=== PATIENT | male | born 1950 | race Caucasian/White ===

== ENCOUNTER → 2020-02-19 08:52 | Outpatient (CLI) | payer MEDICARE, SELFPAY ==
[2020-02-19 10:10] LABS: Add Manual Diff / Slide Review NO; Basophils Absolute Auto 0 /uL (0-100); Basophils Percent Auto 0.5 % (0-2); Eosinophils Absolute Auto 200 /uL (0-450); Eosinophils Percent Auto 4.3 % (2-4); Hematocrit 43.7 % (41-53); Hemoglobin 14.7 g/dL (13.5-17.5); Lymphocytes Absolute Auto 1200 /uL (1100-4500); Lymphocytes Percent Auto 26.6 % (25-40); Mean Corpuscular HGB Conc 33.7 % (30-36); Mean Corpuscular Hemoglobin 31.3 PG (26-34); Mean Corpuscular Volume 92.9 fL (80-100); Monocytes Absolute Auto 400 /uL (0-900); Monocytes Percent Auto 8.1 % (3-14); Neutrophils Absolute Auto 2800 /uL (1500-7000); Neutrophils Percent Auto 60.5 % (50-75); Platelet Count 185 X10^3/uL (150-400); White Blood Cell Count 4.6 X10^3/uL (4.5-11.0)
[2020-02-19 10:18] LABS: Hemoglobin A1C% w Est Avg Glu 5.5 % (4.0-6.0)
[2020-02-19 10:41] LABS: BUN Creatinine Ratio 21.7 (6-22); Blood Urea Nitrogen 18 mg/dL (9-20); Carbon Dioxide 34 mmol/L (22-32); Chloride 106 mmol/L (98-107); Estimated Glomerular Filt Rate > 60.0 mL/min (>60); Glucose 104 mg/dL (80-110); HEMOLYSIS < 15 (0-50); Potassium 3.9 mmol/L (3.4-5.1); Sodium 141 mmol/L (137-145)
== END ==
PROVIDERS: PCP Nurse Practitioner Family; Referring Provider Nurse Practitioner Family; Visit Provider Orthopaedic Surgery
DX: Z01.818 Encounter for other preprocedural examination (principal); R73.9 Hyperglycemia, unspecified; Z01.812 Encounter for preprocedural laboratory examination
CPT/HCPCS: 36415; 80048; 83036; 85025; 93005

== ENCOUNTER → 2020-03-08 10:04 | Outpatient (CLI) | payer MEDICARE, SELFPAY ==
[2020-03-08 11:36] LABS: COVID19 -Nasal RAPID Negative (Negative)
== END ==
PROVIDERS: PCP Nurse Practitioner Family; Referring Provider Physician Assistant; Visit Provider Physician Assistant
DX: Z01.812 Encounter for preprocedural laboratory examination (principal); Z20.828 Contact with and (suspected) exposure to other viral communicable diseases
CPT/HCPCS: 87635; C9803

== ENCOUNTER 2020-03-10 06:21 | Day surgery (SDC) | payer MEDICARE, SELFPAY ==
[2020-03-03 12:59] VITALS: BMI 40.7
[2020-03-10] VITALS (18 sets, daily range): BP systolic 86–132; BP diastolic 42–80; PULSE 53–94; RESP 10–18; TEMP 36.3–36.9; O2SAT 91–98; BMI 39.6
[2020-03-10] MEDS: ACETAMINOPHEN 325 MG TABLET 975 MG PO (06:58)
[2020-03-10] MEDS: PREGABALIN 75 MG CAPSULE PO (06:59)
[2020-03-10] MEDS: LACTATED RINGERS 1,000 ML 42 ML IV ×2 (07:22→09:22)
--- NOTE | 2020-03-10 07:36 | PM.PREOP ---
Pre-operative Note COVID-19 COVID-19 status: Negative Result date/Date tested (Pos, Neg/Pending): 03/08/20 Interval Note History & Physical reviewed/Exam performed by Physician: Yes Changes to H&P: No
[2020-03-10] MEDS: CEFAZOLIN 2 GM/100 ML FROZ.PIGGY IV (07:52)
[2020-03-10] MEDS: TRANEXAMIC ACID 1,000 MG VIAL 2000 MG INJ ×2 (08:21→09:30)
--- NOTE | 2020-03-10 08:33 | SUR.OPER ---
Supine on padded OR bed. Pillow under head, arms secured on padded armboards <90 degree abduction. Safety belt across torso. Non-operative leg secured with tape over blanket over lower leg. Operative leg secured in DeMayo/Cabrera positioner.
[2020-03-10] MEDS: BUPIVACAINE LIPOSOME 266 MG/20 ML VIAL INJ (08:41)
[2020-03-10] MEDS: MORPHINE 4 MG/ML INJ INJ (08:42)
[2020-03-10] MEDS: BUPIVACAINE 0.25% W/ EPI 30 ML VIAL 60 ML INJ (08:43)
[2020-03-10] MEDS: TRANEXAMIC ACID 1,000 MG VIAL 1000 MG INJ (09:30)
--- NOTE | 2020-03-10 09:57 | P.OP_ITS ---
Operative Date/Time/Diagnoses Date of procedure: 03/10/20 Time of procedure: 09:57 Pre-op diagnosis: Right knee osteoarthritis Post-op diagnosis: same Procedure & Clinicians Procedure: Right total knee replacement Same procedure as scheduled: Yes Indications: The patient has had progressively worsening right knee pain with radiographic changes consistent with arthritis. Non-operative management has failed and the patient has requested total knee replacement. The risks, benefits and alternatives to surgery were discussed with the patient prior to proceeding. Risks discussed included, but were not limited to, failure to relieve pain, stiffness, infection, nerve damage, deep venous thrombosis, pulmonary embolism, stroke, coma, heart attack, permanent paralysis and , as well as the potential need for eventual revision of the prosthetic. Surgeon: Adalberto Mathew Housing Relocation: Rachel Cordova Click Yes if Unassisted: No Anesthesia Type: General, Spinal and Local Operative Notes Findings: Severe lateral and moderate medial and patellofemoral osteoarthritis Closure Type: primary Specimen(s): none sent Prosthetic devices, grafts, tissues, transplants, or devices: Implants used in this procedure were manufactured by the [employer] and included the BCS II Journey total knee replacement with a size 7 right Oxinium femoral component, a size 7 right non porous tibial base plate, a 9 mm cross- linked polyethylene tibial insert and a 38 mm oval Haylie II patella. Applied: implant(s) Estimated Blood Loss (mL): 25 Blood products transfused: none Tourniquet time (min): 58 Procedure in detail: The patient was seen in the pre-operative area, where the patient identified the right knee as the operative site and this was marked with my initials. The patient received pre-operative antibiotics, and was taken to the operating room and placed on the operative table in the supine position. After satisfactory anesthesia, a artillery or naval gunfire observer out was performed. The right leg was encircled with a tourniquet about the proximal thigh, and the leg was prepared from the toes to the tourniquet with ChloraPrep in the usual fashion and draped through sterile drapes. The leg was elevated and exsanguinated with Eschmark bandage and the tourniquet inflated to 250 mmHg pressure. The knee was approached through an approximately 18 cm incision centered over the patella and carried into the knee through a medial parapatellar arthrotomy. The anterior osteophytes and soft tissues were removed. The rotational landmarks of Lucile's line and the transepicondylar axis were marked on the femur with electrocautery, and intramedullary guide holes for the femur and tibia were created. The distal femoral cut was made in 6 degrees of valgus using the intramedullary guide at the primary cut setting. The proximal tibial cut was then made using the intramedullary guide, taking 7 mm of bone off the less involved medial side. The extension gap was checked and the rotation of the femoral component confirmed with the gap balancing system. The anterior, posterior and chamfer cuts were then made. The posterior osteophytes and soft tissues were then removed. The posterior capsule was injected with part of a mixture of 60 ml 0.25% Marcaine mixed with 20 ml Exparel and 4 mg of morphine for post-operative pain control. The remainder of this mixture was injected into the capsule and subcutaneous tissues during cement curing. The tibia was prepared with the rotation set by an extra medullary guide. Trial tibial and femoral components were then placed and the intercondylar notch cut through the femoral trial. Range of motion was 0-135 degrees, with good stability throughout the range. The patella was then cut to accommodate the patellar prosthetic. There was no need for a lateral release. The trials were then removed, and the femoral hole plugged with a bone plug. The bone was prepared with pulsatile lavage, and dried with a sponge. Cement was applied and the final prosthetics placed. Excess cement was removed during and after cement curing. After confirming there was no extruded cement posteriorly, the final tibial insert was placed. The knee was copiously irrigated and the tourniquet deflated. Hemostasis was obtained. The capsule was closed with interrupted # 2 polyester suture. The subcutaneous layer was closed with 3-0 Vicryl, and the skin with a running 3-0 V-Lock suture and Dermabond. An Aquacel Ag dressing was applied and the patient was taken to recovery having tolerated the procedure well. Complications: none Post-operative Condition: stable Disposition: PACU Plan for aftercare: The patient will be maintained on a standard total knee replacement protocol with weight bearing as tolerated. The patient will receive aspirin and sequential compression devices for DVT prophylaxis. The patient will be discharged home when safe for the home environment.
--- NOTE | 2020-03-10 10:59 | PC.NURSE ---
Day shift: Pt on unit from PACU at approx 1058. Oriented to room and call light. Agrees to not get OOB w/o help from staff. Denies any pain or nausea. PPP. Can feel light touch BLE's but can't move feet/toes at this time. No BLE edema seen at this (HX of BLE edema on is H&P). Tolerating SCD's. Reports not needing to void at tis time. BT's hypoactive. RA 93%. Encouraged and instructed on I.S. use. VS WNL. Will continue to monitor. Stefanie nue w/ plan of care.
[2020-03-10] MEDS: LACTATED RINGERS 1,000 ML 100 ML IV (11:11)
[2020-03-10] MEDS: IBUPROFEN 400 MG TABLET PO ×2 (12:25→16:17)
--- NOTE | 2020-03-10 13:33 | DI.RAD.S_ITS ---
PROCEDURE: XR KNEE RT 1TO2V INDICATIONS: post operative right knee TECHNIQUE: 2 view(s) of the knee acquired. COMPARISON: None. FINDINGS: Bones: Patient is status post knee joint arthroplasty. Hardware components are in expected positions. Visualized bony structures are intact. Soft tissues: Overlying postoperative changes are noted. IMPRESSION: Expected postoperative appearance Dictated by: Kennedy Jimenes M.D. on 03/10/2020 at 10:56 Approved by: Kennedy Jimenes M.D. on 03/10/2020 at 10:57
[2020-03-10] MEDS: ACETAMINOPHEN 325 MG TABLET 650 MG PO (13:46)
[2020-03-10] MEDS: hydrOXYzine pamoate 25 MG CAPSULE PO (13:47)
--- NOTE | 2020-03-10 15:32 | PT.IIE ---
Current Diagnoses Unilateral primary osteoarthritis, right knee (03/10/20) Surgery Performed Operation Date: 03/10/20 07:45 Actual Procedures p Total Knee Arthroplasty(Right) - Adalberto Mathew MD Surgical History (Last Updated 03/03/20 @ 13:16 by Aziza Hernandez, RN) History of arthroscopy of both knees Hx of laminectomy Hx of tonsillectomy Medical History (Last Updated 03/03/20 @ 13:26 by Aziza Hernandez RN) Amputation of left ring finger Edema Hemorrhoids HLD (hyperlipidemia) HTN (hypertension) JOE on CPAP Osteoarthritis Skin cancer (melanoma) Tendency toward bleeding easily Vertigo Physical Therapy Inpatient Evaluation/Re-Eval M1 PT/OT-IP Prior Functional Status Start: 03/10/20 13:55 Freq: NEEDED Status: Active Protocol: Document 03/10/20 15:20 [facility] (Rec: 03/10/20 15:32 [facility] [id number]) Medical Review Prior Functional Status Medical History Reviewed Yes Diet/Fluid Consistency Regular Communication A &O x 4 Mobility and Gait Independent but painful right knee Activities of Daily Living and IADL's Independent but painful right knee Social History Household Members spouse Living Arrangements House Number of Floors (Floors) One Floor Number of Stairs To Enter/Railing? 2 wide stairs, no railing Home Environment Standard Height Toilet,Tub/ Shower Home Equipment Front Wheel Walker,Grab Bars Near Toilet,Grab Bars In Shower Employment Status Self-Employed Additional Social History Comment Patient owns own business; [employer]. M2 PT-IP Current Condition Start: 03/10/20 13:55 Freq: NEEDED Status: Active Protocol: Document 03/10/20 15:20 [facility] (Rec: 03/10/20 15:32 [facility] [id number]) Physical Therapy Current Condition Current Condition Evaluation Date 03/10/20 Weight Bearing Status Weight Bearing Status Weight Bear as Tolerated M3 PT-IP Subjective Start: 03/10/20 13:55 Freq: NEEDED Status: Active Protocol: Document 03/10/20 15:20 [facility] (Rec: 03/10/20 15:32 [facility] [id number]) Subjective Physical Therapy Visit Type Type Initial Evaluation Visit Start Time 14:37 Visit Stop Time 15:17 Total Visit Minutes 40 Number of DYE WEIGHER Visits 0 Physical Therapy Visit Comments Patient Comments Patient reports achy pain 3-4/ 10 right knee. Denies numbness or tingling. Patient Goals Discharge home. Therapy Pain Assessment Pain When Pain Assessed During Mobility Pain Present Pain Present Pain Reported Location right knee Intensity 4 Scale Used Numeric (0 - 10) Description Aching M4 PT-IP Mobility and Gait Start: 03/10/20 13:55 Freq: NEEDED Status: Active Protocol: Document 03/10/20 15:20 [facility] (Rec: 03/10/20 15:32 [facility] [id number]) PT-Bed Mobility Assessment Supine to Sit Supine to Sit Standby Assistance Scooting Scooting to Edge of Bed Standby Assistance PT-Transfer Assessment Sit to and From Stand Sit to and from Stand Contact Guard Assistance Equipment Transfer Assistive Device Gait Belt,Front Wheeled Walker Orthotic/Prosthetic Devices or Brace: No Transfers Transfer Destination Chair Comments Mobility Comments Patient transferred sit to stand from bed, ambulated in room with CGA and cues, assisted to bathroom where he stood to urinate, then ambulated to chair in room. Patient left sitting up in chair, ice on knee, call light and tray table in reach. Gait Assessment Gait Gait Assistance Required: Contact Guard Assist Distance (Feet) 30 Able to Maintain Weight Bearing Status Yes During Gait Assistive Devices Assistive Device Gait Belt,Front Wheeled Walker Orthotic/Prosthetic Devices or Brace: No Gait Deviations General Gait Pattern Antalgic Factors Limiting Gait Function Factors Limiting Gait Function Pain Comments Gait Comments Mild limp Stair Climbing Assessment Comments Stair Climbing Comments Will need to do gait training on stairs in am prior to discharge. PT-Balance Assessment Sitting Balance and Reactions Static Sitting Balance Ability Normal Dynamic Sitting Balance Ability Normal Standing Balance and Reactions Static Standing Balance Ability Normal Dynamic Standing Balance Ability Normal M5 PT-IP Objective Assessments Start: 03/10/20 13:55 Freq: NEEDED Status: Active Protocol: Document 03/10/20 15:20 [facility] (Rec: 03/10/20 15:32 [facility] [id number]) Orientation Orientation/Cognition Level of Alertness Alert Orientation Name,Age,Place,Situation Language Function Ability No Deficits Noted Safety Awareness Understands Safety Issues Memory Description No Deficits Noted Gross Range of Motion Upper Extremity ROM Assessment Within Functional Limits Lower Extremity ROM Assessment Right Impaired Impairments AAROM 0- 85 Strength Lower Extremity Strength Assessment Within Functional Limits Coordination Assessment Gross Coordination Gross Coordination WNL Sensation Assessment Sensation Gross Sensation WNL Muscle Tone Muscle Tone WNL Yes M6 PT-IP Treatment Start: 03/10/20 13:55 Freq: NEEDED Status: Active Protocol: Document 03/10/20 15:20 [facility] (Rec: 03/10/20 15:32 [facility] [id number]) Physical Therapy Treatment Exercises Exercises Ankle Pumps,Quad Sets,Heel Slides,Straight Leg Raises, Short Arc Quads Knee ROM Measurement 0-85 Education Education Provided Safety Equipment Issued Equipment Type and Company None issued. Patient has a walker for home use. Will be brought in for him to use for discharge home. M7 PT-IP Assessment and Plan Start: 03/10/20 13:55 Freq: NEEDED Status: Active Protocol: Document 03/10/20 15:20 [facility] (Rec: 03/10/20 15:32 [facility] [id number]) PT Summary Assessment and Plan Potential Rehabilitation Potential Excellent Status of Condition at Evaluation Stable Summary Impairments Pain,ROM,Strength Assessment Summary Patient presents post-op day of surgery with good muscle activity of quads, denies N/T. Able to ambulate in room, good balance, no dizziness. History of prior surgeries and use of assistive device in the home. Has OP PT scheduled at [facility] 03/15/20. Should be ready for discharge home with assistance of after PT in am to include gait training on stairs. Goals Bed Mobility Goal Independent Transfer Goal Independent Gait Goal Independent Gait Distance 100 Days to Meet Goals 2 Frequency of Treatment Frequency Of Treatment Twice a Day Treatment Plan Physical Therapy Treatment Plan Bed Mobility Training,Transfer Training,Gait Training, Therapeutic Exercise,Post Op Education,Discharge Planning Recommendations To Nursing Amount of Assist Needed 1 Person Assist Discharge Recommendations PT Discharge Recommendations Home with Assistance Equipment Needed for Home Before None Discharge Transportation Needs at Discharge Private Vehicle
[2020-03-10] MEDS: OXYCODONE IR 5 MG TABLET PO ×2 (16:18→16:28)
--- NOTE | 2020-03-10 17:24 | PC.NURSE ---
late entry: A&OX4. pain 5/10, medicated with 10mg oxycodone. [id number]. aquacel cdi w/acewrap. CMS+. Dr. Mathew came by to assess pt, he placed dc orders. pt did not have stairs training, provider okayed. taught how to use the gait belt. dc instructions given to patient and .
== END 2020-03-10 17:30 | disposition home or self-care (01) ==
LOC: OR 11:05 → AC 11:05
PROVIDERS: PCP Nurse Practitioner Family; Referring Provider Nurse Practitioner Family; Visit Provider Orthopaedic Surgery
PROC: 0SRC0JZ Replacement of Right Knee Joint with Synthetic Substitute, Open Approach (ICD-10-PCS; CPT 27447; principal; 2020-03-10 07:45)
DX: M17.11 Unilateral primary osteoarthritis, right knee (principal); I10 Essential (primary) hypertension; E78.5 Hyperlipidemia, unspecified; G47.33 Obstructive sleep apnea (adult) (pediatric)
CPT/HCPCS: 27447; 73560; 97110; 97161; C1776; C9290; J0690; J1100; J2250; J2270; J2405; J2704; J3010